=== PATIENT | male | born 1990 | race Caucasian/White ===

== ENCOUNTER 2024-01-14 09:57 | Emergency (ER) | payer SELFPAY ==
[~2024-01-14] VITALS: Ht 175.3 cm; Wt 95.3 kg
[2024-01-14 10:06] VITALS: BP 125/81; PULSE 123; RESP 18; TEMP 99; O2SAT 96
[2024-01-14 10:34] LABS: BASOPHILS # (AUTO) 0.1 K/uL (0.00-0.22); BASOPHILS % (AUTO) 0.5 % (0.0-2.0); EOSINOPHILS # (AUTO) 0.3 K/uL (0-0.4); HEMATOCRIT 41.3 % (36-52); HEMOGLOBIN 13.3 g/dL (12.0-18.0); LYMPHOCYTES # (AUTO) 1.6 K/uL (2.0-11.5); LYMPHOCYTES % (AUTO) 12.7 % (20.5-51.1); MEAN CORPUSCULAR HEMOGLOBIN 25 pg (27-31); MEAN CORPUSCULAR HGB CONC 32 g/dL (33-37); MEAN CORPUSCULAR VOLUME 77.4 fL (80-94); MONOCYTES # (AUTO) 0.9 K/uL (0.8-1.0); MONOCYTES % (AUTO) 6.9 % (1.7-9.3); NEUTROPHILS # (AUTO) 9.7 K/uL (1.8-7.7); NEUTROPHILS % (AUTO) 77.9 % (42.2-75.2); PLATELET COUNT (AUTO) 320 K/uL (140-450); RED BLOOD CELL COUNT(AUTO) 5.34 MIL/uL (4.20-6.10); RED CELL DISTRIBUTION WIDTH 18.4 % (11.6-13.7); WHITE BLOOD COUNT (AUTO) 12.5 K/uL (4.8-10.8)
[2024-01-14 10:50] LABS: ANION GAP 15.5 (8-16); CALCIUM 8.7 mg/dL (8.5-10.1); CARBON DIOXIDE 26.3 mmol/L (21-32); CREATININE 1.4 mg/dL (0.6-1.3); POTASSIUM 3.8 mmol/L (3.5-5.1)
[2024-01-14 10:53] LABS: ALCOHOL, BLOOD < 3 mg/dL (<10)
[2024-01-14 10:54] LABS: ACETAMINOPHEN < 0.5 ug/ml (10-30); SALICYLATE < 2.8 mg/dL (2.8-20.0)
[2024-01-14 15:55] VITALS: BP 118/64; PULSE 86; RESP 18; TEMP 98.6; O2SAT 99
== END 2024-01-14 15:54 | disposition home or self-care (01) ==
LOC: MED 09:57
DX: R46.1 Bizarre personal appearance (principal); R40.1 Stupor; Z20.822 Contact with and (suspected) exposure to COVID-19
CPT/HCPCS: 36415; 80048; 85025; 87426; 99285; G0480; G0482

== ENCOUNTER 2024-01-27 18:31 | Emergency (ER) | payer SELFPAY ==
[~2024-01-27] VITALS: Ht 172.7 cm; Wt 95.3 kg
[2024-01-27 18:50] VITALS: BP 134/73; PULSE 102; RESP 18; TEMP 98.2; O2SAT 98
[2024-01-27] MEDS ORDERED: DOXY-487 PO (19:09)
[2024-01-27] MEDS ORDERED: LIDOCAINE MPF 1% 5 ML ONE (19:16)
[2024-01-27] MEDS ORDERED: cefTRIAXone 1,000 MG VIAL ONE (19:16)
[2024-01-27] MEDS: cefTRIAXone 1,000 MG in LIDOCAINE MPF 1% 2.1 ML IM ONE (19:28)
== END 2024-01-27 19:26 | disposition home or self-care (01) ==
LOC: MED 18:31
DX: L03.116 Cellulitis of left lower limb (principal); Z79.899 Other long term (current) drug therapy
CPT/HCPCS: 96372; 99283; J0696; J2001

== ENCOUNTER 2024-06-07 02:00 | Emergency (ER) | payer MEDICAID ==
[~2024-06-07] VITALS: Ht 175.3 cm; Wt 99.8 kg
[~2024-06-07 02:00] MED LIST: DOXY-487 PO
[2024-06-07 02:08] VITALS: BP 150/86; PULSE 109; RESP 16; TEMP 99.1; O2SAT 98
[2024-06-07 02:27] VITALS: O2SAT 98
[2024-06-07 03:55] LABS: BASOPHILS % (AUTO) 0.5 % (0.0-2.0); EOSINOPHILS # (AUTO) 0.3 K/uL (0-0.4); HEMOGLOBIN 12.4 g/dL (12.0-18.0); LYMPHOCYTES # (AUTO) 2.2 K/uL (2.0-11.5); LYMPHOCYTES % (AUTO) 22.7 % (20.5-51.1); MEAN CORPUSCULAR HEMOGLOBIN 25 pg (27-31); MEAN CORPUSCULAR HGB CONC 32 g/dL (33-37); MEAN CORPUSCULAR VOLUME 79.4 fL (80-94); MONOCYTES # (AUTO) 1.1 K/uL (0.8-1.0); MONOCYTES % (AUTO) 11.4 % (1.7-9.3); NEUTROPHILS # (AUTO) 6.2 K/uL (1.8-7.7); NEUTROPHILS % (AUTO) 62.4 % (42.2-75.2); PLATELET COUNT (AUTO) 265 K/uL (140-450); RED BLOOD CELL COUNT(AUTO) 4.91 MIL/uL (4.20-6.10); RED CELL DISTRIBUTION WIDTH 17.7 % (11.6-13.7); WHITE BLOOD COUNT (AUTO) 9.9 K/uL (4.8-10.8)
[2024-06-07 04:25] LABS: CALCIUM 8.4 mg/dL (8.5-10.1); CARBON DIOXIDE 30.3 mmol/L (21-32); CREATININE 0.9 mg/dL (0.6-1.3); POTASSIUM 3.3 mmol/L (3.5-5.1)
[2024-06-07 04:26] LABS: TOTAL BILIRUBIN 0.4 mg/dL (0.0-1.0); TOTAL PROTEIN, SERUM 7.4 g/dL (6.4-8.2)
[2024-06-07 04:27] VITALS: O2SAT 98
[2024-06-07 04:27] LABS: ALBUMIN 3.2 g/dL (3.4-5.0)
[2024-06-07] MEDS: KETOROLAC 30 MG/ML VIAL IVP ONE (04:41)
[2024-06-07] MEDS ORDERED: LIDOCAINE/EPI 1% 1:100000 20 ML VIAL INJ ONE (05:50)
[2024-06-07] MEDS: LIDOCAINE MPF 1% 10 MG/ML VIAL INJ ONE (06:06)
[2024-06-07] MEDS ORDERED: CEPH500C16 PO (06:17)
[2024-06-07] MEDS ORDERED: SULF-59 PO (06:17)
[2024-06-07 06:43] VITALS: BP 132/82; PULSE 87; RESP 18; TEMP 98.2; O2SAT 99
== END 2024-06-07 06:43 | disposition home or self-care (01) ==
LOC: MED 02:00
DX: L02.414 Cutaneous abscess of left upper limb (principal); L03.114 Cellulitis of left upper limb; Z79.899 Other long term (current) drug therapy; W57.XXXA Bitten or stung by nonvenomous insect and other nonvenomous arthropods, initial encounter; Y92.89 Other specified places as the place of occurrence of the external cause; Y93.89 Activity, other specified; Y99.8 Other external cause status
CPT/HCPCS: 10060; 36415; 73090; 80053; 85025; 85651; 86140; 96374; 99284; J1885; J2001